=== PATIENT | male | born 1985 | race Caucasian/White ===

== ENCOUNTER 2020-08-30 22:45 | Emergency (ER) | payer SELFPAY ==
[~2020-08-30] VITALS: Ht 175.2 cm; Wt 73.6 kg
[2020-08-30 22:49] VITALS: BP 122/73
[2020-08-30] MEDS ORDERED: ONDANSETRON 4 MG (ZOFRAN) ORAL DISSOLVE TAB PO STA (22:59)
[2020-08-30] MEDS ORDERED: DOXYCYCLINE 100 MG (VIBRAMYCIN) TABLET PO ONE (23:00)
--- NOTE | 2020-08-30 23:01 | ED Integumentary General ---
General Chief Complaint: Skin/Wound Problems Stated Complaint: RASH ON WRISTS,MOUTH Nursing Triage Note: Patient states that he developed a wound on his right index finger. He now has a rash around his mouth. Right index finger has a broken blister like appearance. Patient does state that he began vomiting today. Source: patient Exam Limitations: no limitations History of Present Illness Date Seen by Provider: Aug 30, 2020 Time Seen by Provider: 10:57 Initial Comments presents w sores on his skin present for "days". 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 [place]cently moved to this area from [place] and has not established a PCP yet. Having some nausea without abdominal pain Allergies and Home Medications Allergies Coded Allergies: No Known Drug Allergies (Unverified , 08/30/20) Patient Home Medication List Home Medication List Reviewed: Yes Review of Systems Review of Systems Constitutional: see HPI; No chills, No fever, No weakness Respiratory: No cough, No short of breath Cardiovascular: No chest pain, No edema, No palpitations Gastrointestinal: No abdominal pain, No loss of appetite; nausea; No vomiting Musculoskeletal: No back pain, No joint pain, No muscle pain Skin: see HPI, lesions (all over) Past Hqcjkrh-Zjciic-Zwkdxi Hx Past Med/Social Hx: Reviewed Nursing Past Med/Soc Hx Patient Social History Recent Foreign Travel: No Contact w/Someone Who Travel: No Recent Infectious Disease Expo: No Physical Exam Vital Signs Vital Signs - First Documented 08/30/20 22:49 Temp 36.6 Pulse 107 Resp 18 B/P (MAP) 122/73 (89) Pulse Ox 97 O2 Delivery Room Air Capillary Refill : Less Than 3 Seconds General Appearance: WD/WN, no apparent distress Cardiovascular: regular rate, rhythm, no edema Respiratory: chest non-tender, lungs clear Skin: No ecchymosis, No jaundice, No pallor; rash, other (scattered lesions of trunk and extremities.....crusted lesions (c/w MRSA). No abscess, no drainage. No petechiae) Lymphatic: no adenopathy Progress/Results/Core Measures Results/Orders My Orders Orders - RITU GUERRERO DO Doxycycline Hyclate Tablet (Vibramycin T (08/30/20 23:00) Ondansetron Oral Dissolve Tab (Zofran (08/30/20 22:59) Vital Signs/I&O 08/30/20 22:49 Temp 36.6 Pulse 107 Resp 18 B/P (MAP) 122/73 (89) Pulse Ox 97 O2 Delivery Room Air Blood Pressure Mean: 89 Departure Impression Primary Impression: MRSA (methicillin resistant Staphylococcus aureus) infection Disposition: 01 HOME, SELF-CARE Condition: Stable Departure-Patient Inst. Decision time for Depature: 23:02 Referrals: [facility] NO,LOCAL PHYSICIAN (PCP) Primary Care Physician Patient Instructions: MRSA (DC) Add. Discharge Instructions: Call the [facility] to establish care next week. All discharge instructions reviewed with patient and/or family. Voiced understanding. Scripts Mupirocin Calcium (Mupirocin) 15 Gm Cream..g. 15 GM TP TID, #1 TUBE 2 Refills Prov: RITU GUERRERO DO 08/30/20 Doxycycline Hyclate (Doxycycline Hyclate) 100 Mg Tablet 100 MG PO BID, #20 TAB 0 Refills Prov: RITU GUERRERO DO 08/30/20 RITU GUERRERO DO Aug 30, 2020 23:01
[2020-08-30] MEDS ORDERED: DOXY100T2 PO (23:04)
[2020-08-30] MEDS ORDERED: MUPI15CR11 TP (23:04)
[2020-08-30] MEDS ORDERED: ONDANSETRON 4 MG (ZOFRAN) ORAL DISSOLVE TAB ONE (23:05)
[2020-08-30] MEDS ORDERED: DOXYCYCLINE 100 MG (VIBRAMYCIN) TABLET ONE (23:05)
== END 2020-08-30 23:13 | disposition home or self-care (01) ==
LOC: ER FS 22:47
DX: A49.02 Methicillin resistant Staphylococcus aureus infection, unspecified site (principal)
CPT/HCPCS: 99283

== ENCOUNTER 2020-09-02 14:34 | Emergency (ER) | payer SELFPAY ==
[~2020-09-02] VITALS: Ht 175.3 cm; Wt 76.6 kg
[~2020-09-02 14:34] MED LIST: DOXY100T2 PO; MUPI15CR11 TP
[2020-09-02] MEDS ORDERED: CLINDAMYCIN 600 MG/50 ML IVPB 50 ML IV ONE (15:00)
[2020-09-02] MEDS ORDERED: NS IV 1000 ML 1,000 ML IV SCH (15:00)
--- NOTE | 2020-09-02 15:04 | ED Integumentary General ---
General Chief Complaint: Skin/Wound Problems Stated Complaint: HAS A STAPH INFECTION Nursing Triage Note: Patient reports he was seen in the ED here 3 days ago for a skin infection on his right first finger, face, shoulders bilaterally, and the back of his left leg. He reports he has been taking his doxycycline as prescribed, but was unable to fill the topical ointment prescription d/t cost. He reports that his skin infection is worsening and he now has a stiff neck and some generalized abdominal pain. Source: patient History of Present Illness Date Seen by Provider: Sep 02, 2020 Time Seen by Provider: 14:58 Initial Comments 34-year-old male states he has a history of MRSA skin infections which have been culture proven in the past he started with a scab-like infected-looking area on the dorsal right index finger at the PIP recently was seen here 3 days ago and started on doxycycline which he has been taking he's not gotten the Bactroban ointment says there is been no improvement some spreading of infection he has small areas on his posterior shoulders and upper chest does have a scabbed area on the left lower leg Allergies and Home Medications Allergies Coded Allergies: No Known Drug Allergies (Unverified , 08/30/20) Home Medications Clindamycin HCl 300 Mg Capsule, 300 MG PO QID Prescribed by: JOHN CASTAÑEDA on 09/02/20 1512 Doxycycline Hyclate 100 Mg Tablet, 100 MG PO BID Prescribed by: RITU GUERRERO on 08/30/202303 Mupirocin Calcium 15 Gm Cream..g., 15 GM TP TID Prescribed by: RITU GUERRERO on 08/30/202303 Patient Home Medication List Home Medication List Reviewed: Yes Review of Systems Review of Systems Constitutional: No fever EENTM: no symptoms reported Respiratory: no symptoms reported Cardiovascular: no symptoms reported Gastrointestinal: no symptoms reported; No nausea, No vomiting Genitourinary: no symptoms reported Musculoskeletal: no symptoms reported Past Avyqlmb-Cjtbdl-Fpszws Hx Patient Social History Alcohol Use: Denies Use Recreational Drug Use: No Smoking Status: Current Everyday Smoker Type Used: Cigarettes 2nd Hand Smoke Exposure: No Recent Foreign Travel: No Contact w/Someone Who Travel: No Recent Infectious Disease Expo: No Recent Hopitalizations: No Physical Abuse: No Sexual Abuse: No Mistreated: No Fear: No Seasonal Allergies Seasonal Allergies: No Past Medical History Surgeries: Yes Orthopedic Respiratory: No Cardiac: No Neurological: No Genitourinary: No Gastrointestinal: No Musculoskeletal: No Endocrine: No HEENT: No Cancer: No Psychosocial: No Integumentary: Yes (MRSA) Physical Exam Vital Signs Vital Signs - First Documented 09/02/20 14:45 Temp 36.2 Pulse 103 Resp 18 B/P (MAP) 168/108 (128) Pulse Ox 100 O2 Delivery Room Air Capillary Refill : Less Than 3 Seconds General Appearance: WD/WN (non-toxic appearance afebrile), no apparent distress HEENT: PERRL/EOMI, TMs normal, pharynx normal Neck: supple, other (no evidence of meningeal irritation) Cardiovascular: regular rate, rhythm, no murmur Respiratory: lungs clear Gastrointestinal: normal bowel sounds, non tender, soft Extremities: normal inspection, other (slight swelling present right index finger and no tenosynovitis) Skin: other (as described has scab-like lesions dorsal right index finger PIP near the left side of the mouth posterior lateral left lower leg) Progress/Results/Core Measures Results/Orders Lab Results Laboratory Tests Test 09/02/20 14:55 Range/Units White Blood Count 5.7 4.3-11.0 10^3/uL Red Blood Count 4.88 4.35-5.85 10^6/uL Hemoglobin 14.5 13.3-17.7 G/DL Hematocrit 42 40-54 % Mean Corpuscular Volume 85 80-99 FL Mean Corpuscular Hemoglobin 30 25-34 PG Mean Corpuscular Hemoglobin Concent 35 32-36 G/DL Red Cell Distribution Width 12.8 10.0-14.5 % Platelet Count 208 130-400 10^3/uL Mean Platelet Volume 11.0 H 7.4-10.4 FL Immature Granulocyte % (Auto) 0 % Neutrophils (%) (Auto) 48 42-75 % Lymphocytes (%) (Auto) 44 12-44 % Monocytes (%) (Auto) 7 0-12 % Eosinophils (%) (Auto) 1 0-10 % Basophils (%) (Auto) 1 0-10 % Neutrophils # (Auto) 2.7 1.8-7.8 X 10^3 Lymphocytes # (Auto) 2.5 1.0-4.0 X 10^3 Monocytes # (Auto) 0.4 0.0-1.0 X 10^3 Eosinophils # (Auto) 0.1 0.0-0.3 10^3/uL Basophils # (Auto) 0.0 0.0-0.1 10^3/uL Immature Granulocyte # (Auto) 0.0 0.0-0.1 10^3/uL My Orders Orders - JOHN CASTAÑEDA MD Iv Heplock-Insert (Order) (09/02/20 14:53) Cbc With Automated Diff (09/02/20 14:53) Clindamycin 600 Mg/50 Ml Ivpb (Cleocin P (09/02/20 15:00) Ns Iv 1000 Ml (Sodium Chloride 0.9%) (09/02/20 15:00) Wound Culture (09/02/20 14:53) Hydrocodone/Apap 5/325 Tablet (Lortab 5 (09/02/20 15:15) Medications Given in ED Current Medications Medications Dose Ordered Sig/Angel Route Start Time Stop Time Status Last Admin Dose Admin Acetaminophen/ Hydrocodone Bitart 1 tab ONCE ONCE PO 09/02/20 15:15 09/02/20 15:16 DC 09/02/20 15:20 1 TAB Clindamycin Phosphate/Dextrose 50 ml @ 100 mls/hr ONCE ONCE IV 09/02/20 15:00 09/02/20 15:29 DC 09/02/20 15:13 100 MLS/HR Vital Signs/I&O 09/02/20 14:45 Temp 36.2 Pulse 103 Resp 18 B/P (MAP) 168/108 (128) Pulse Ox 100 O2 Delivery Room Air Blood Pressure Mean: 128 Progress Progress Note : Progress Note Hb 14.5 WBC 5,700 Departure Impression Primary Impression: MRSA (methicillin resistant Staphylococcus aureus) infection Disposition: HOME, SELF-CARE Condition: Stable Departure-Patient Inst. Referrals: NO,LOCAL PHYSICIAN (PCP/Family) Primary Care Physician Patient Instructions: MRSA (DC) Scripts Hydrocodone/Acetaminophen ([place] 10-325 Tablet) 1 Each Tablet 1 TAB PO Q6H PRN for PAIN-MODERATE MDD 5 TABS, #10 TAB Prov: JOHN CASTAÑEDA MD 09/02/20 Clindamycin HCl (Clindamycin HCl) 300 Mg Capsule 300 MG PO QID for 7 Days, #28 CAP Prov: JOHN CASTAÑEDA MD 09/02/20 JOHN CASTAÑEDA MD Sep 02, 2020 15:03
[2020-09-02] MEDS ORDERED: CLIN300C11 PO (15:12)
[2020-09-02] MEDS ORDERED: HYDROcodone/APAP 5 MG/325 MG (LORTAB) TAB PO ONE (15:15)
[2020-09-02 15:28] LABS: HEMATOCRIT 42 % (40-54); HEMOGLOBIN 14.5 G/DL (13.3-17.7); MEAN CORPUSCULAR HEMOGLOBIN 30 PG (25-34); MEAN CORPUSCULAR HGB CONC 35 G/DL (32-36); MEAN CORPUSCULAR VOLUME 85 FL (80-99); WHITE BLOOD COUNT 5.7 10^3/uL (4.3-11.0)
[2020-09-02 15:29] LABS: BASOPHILS % (AUTO) 1 % (0-10); EOSINOPHILS # (AUTO) 0.1 10^3/uL (0.0-0.3); EOSINOPHILS % (AUTO) 1 % (0-10); LYMPHOCYTES # (AUTO) 2.5 X 10^3 (1.0-4.0); LYMPHOCYTES % (AUTO) 44 % (12-44); MONOCYTES # (AUTO) 0.4 X 10^3 (0.0-1.0); MONOCYTES % (AUTO) 7 % (0-12); NEUTROPHILS # (AUTO) 2.7 X 10^3 (1.8-7.8); NEUTROPHILS % (AUTO) 48 % (42-75); PLATELET COUNT 208 10^3/uL (130-400)
[2020-09-02] MEDS ORDERED: HYDR-4196 PO (15:56)
[2020-09-02 16:31] VITALS: BP 138/83
== END 2020-09-02 16:30 | disposition home or self-care (01) ==
LOC: EDUNIT# 14:34 → ER FS 14:35
DX: A49.02 Methicillin resistant Staphylococcus aureus infection, unspecified site (principal); F17.210 Nicotine dependence, cigarettes, uncomplicated
CPT/HCPCS: 36415; 85025; 87070; 87077; 87205

== ENCOUNTER 2020-09-11 22:09 | Emergency (ER) | payer SELFPAY ==
[~2020-09-11] VITALS: Ht 162.6 cm; Wt 74.6 kg
[~2020-09-11 22:09] MED LIST changes: +CLIN300C11 PO; +HYDR-4196 PO
--- NOTE | 2020-09-11 22:35 | ED Integumentary General ---
General Chief Complaint: Skin/Wound Problems Stated Complaint: STAPH INFECTION Nursing Triage Note: pt states he has been seen for skin infection and cultured x 2, pt has been on doxycycline and most recently cleocin which pt states neither has worked. Source: patient Exam Limitations: no limitations History of Present Illness Date Seen by Provider: Sep 11, 2020 Time Seen by Provider: 22:30 Initial Comments Patient presents with evidence of cellulitis complaining that is not improving on the antibiotics he does not like the antibiotics is the given the digestion thinks that his rash is getting worse. The predominant lesions on the dorsum of the right hand and right wrist the left lower lip area he thinks he also has lesions on his genitals. He denies a fever or denies trouble passing his urine has no vomiting no diarrhea Timing/Duration: other ( this has been apparently going on for some period of time) Severity: mild Location: face, hands, genitalia Possible Cause: other (MRSA?) Associated Symptoms: change in skin texture; No fever, No flushing, No hives Allergies and Home Medications Allergies Coded Allergies: No Known Drug Allergies (Unverified , 08/30/20) Home Medications Clindamycin HCl 300 Mg Capsule, 300 MG PO QID Prescribed by: JOHN CASTAÑEDA on 09/02/20 1512 Doxycycline Hyclate 100 Mg Tablet, 100 MG PO BID Prescribed by: RITU GUERRERO on 08/30/20 230 Hydrocodone/Acetaminophen 1 Each Tablet, 1 TAB PO Q6H PRN for PAIN-MODERATE Prescribed by: JOHN CASTAÑEDA on 09/02/20 1556 Mupirocin Calcium 15 Gm Cream..g., 15 GM TP TID Prescribed by: RITU GUERRERO on 08/30/20 230 Patient Home Medication List Home Medication List Reviewed: Yes Review of Systems Review of Systems Constitutional: no symptoms reported; No chills, No diaphoresis, No fever EENTM: mouth pain (painful left lower lip); No no symptoms reported Respiratory: no symptoms reported; No cough Cardiovascular: no symptoms reported; No chest pain, No edema Gastrointestinal: No abdominal pain, No diarrhea; heartburn (related to taking the clindamycin) Musculoskeletal: see HPI Skin: see HPI Psychiatric/Neurological: No Symptoms Reported Past Bskhzbt-Xzghju-Ettsav Hx Patient Social History Alcohol Use: Denies Use Recreational Drug Use: No Smoking Status: Never a Smoker Type Used: Cigarettes 2nd Hand Smoke Exposure: No Recent Foreign Travel: No Contact w/Someone Who Travel: No Recent Infectious Disease Expo: No Recent Hopitalizations: No Physical Abuse: No Sexual Abuse: No Mistreated: No Fear: No Seasonal Allergies Seasonal Allergies: No Past Medical History Surgeries: Yes Orthopedic Respiratory: No Cardiac: No Neurological: No Genitourinary: No Gastrointestinal: No Musculoskeletal: No Endocrine: No HEENT: No Cancer: No Psychosocial: No Integumentary: Yes (MRSA) Blood Disorders: No Physical Exam Vital Signs Vital Signs - First Documented 09/11/20 22:19 Temp 36.6 Pulse 113 Resp 20 B/P (MAP) 146/76 (99) Pulse Ox 9 O2 Delivery Room Air Capillary Refill : Less Than 3 Seconds General Appearance: WD/WN, no apparent distress HEENT: PERRL/EOMI Neck: non-tender, full range of motion, supple Cardiovascular: regular rate, rhythm, no edema Respiratory: chest non-tender, lungs clear, normal breath sounds Gastrointestinal: normal bowel sounds, non tender Extremities: normal inspection, other (there is evidence of dry excoriated linear areas on the dorsum of the right hand and wrist that are scabbed with minimally erythematous margins that appear to be mostly healing granulation tissue. There is no oozing or purulence discharging from the wounds there is no lymphangitis there is no regional adenopathy) Neurologic/Psychiatric: benefits manager II-XII nml as tested, no motor/sensory deficits Skin: other (is also somewhat vesicular patch of lesions the left lower corner of the mouth on the stratified squamous epithelium. It again is dry and nonpurulent without evidence of abscess) Skin Problem Location: face, upper extremities Skin Problem Character: lesion, thickening Lymphatic: no adenopathy Progress/Results/Core Measures Results/Orders Lab Results Laboratory Tests Test 09/11/20 22:30 Range/Units White Blood Count 8.2 4.3-11.0 10^3/uL Red Blood Count 4.89 4.35-5.85 10^6/uL Hemoglobin 14.4 13.3-17.7 G/DL Hematocrit 42 40-54 % Mean Corpuscular Volume 86 80-99 FL Mean Corpuscular Hemoglobin 29 25-34 PG Mean Corpuscular Hemoglobin Concent 34 32-36 G/DL Red Cell Distribution Width 12.8 10.0-14.5 % Platelet Count 210 130-400 10^3/uL Mean Platelet Volume 11.2 H 7.4-10.4 FL Lactic Acid Level 1.16 0.50-2.00 MMOL/L My Orders Orders - JONATHAN HERBERT DO Cbc No Diff (09/11/20 22:28) Lactic Acid Analyzer (09/11/20 22:28) Antacid Suspension (Mylanta Suspension (09/11/20 22:45) Mupirocin Ointment (Bactroban Ointment (09/12/20 09:00) Mupirocin Ointment (Bactroban Ointment (09/11/20 22:45) Medications Given in ED Current Medications Medications Dose Ordered Sig/Angel Route Start Time Stop Time Status Last Admin Dose Admin Al Hydrox/Mg Hydrox/Simethicone 30 ml ONCE ONCE PO 09/11/20 22:45 09/11/20 22:46 DC 09/11/20 22:49 30 ML Vital Signs/I&O 09/11/20 22:19 Temp 36.6 Pulse 113 Resp 20 B/P (MAP) 146/76 (99) Pulse Ox 9 O2 Delivery Room Air Blood Pressure Mean: 99 Progress Progress Note : Progress Note Patient appears to have multiple visits for chronic wounds that are failing to heal promptly apparently history of MRSA skin currently on clindamycin wounds do not appear appeared purulent or infected. Wound on the dorsum of the hand also is quite linear and narrow which doesn't really look to be of infectious but more traumatic at least an initial injury to the skin that may have been secondarily infected and since I'm not seeing the patient before he also complained of lesions on his genitals those appeared to be fairly nonspecific and certainly were not consistent with any typical STD as one was on the full R aspect of the shaft of the penis it was somewhat linear and appeared to be more intertriginous than it did circumscribed lesion. There is one small erythematous spot on the left side of the foreskin but was not vesicular and otherwise is nondescript the plan will be to check inflammatory markers give the patient some antacids for his indigestion from the clindamycin review the record most likely recommend he continue the clindamycin and referred to resources in the candidate to help get his prescriptions filled for Bactroban Departure Impression Primary Impression: Healing wound Disposition: HOME, SELF-CARE Condition: Improved Departure-Patient Inst. Referrals: NO,LOCAL PHYSICIAN (PCP) Primary Care Physician [facility] [place] Patient Instructions: MRSA (DC), Skin Abrasions JONATHAN HERBERT DO Sep 11, 2020 22:35
[2020-09-11 22:41] LABS: HEMOGLOBIN 14.4 G/DL (13.3-17.7); WHITE BLOOD COUNT 8.2 10^3/uL (4.3-11.0)
[2020-09-11 22:42] LABS: MEAN PLATELET VOLUME 11.2 FL (7.4-10.4)
[2020-09-11] MEDS ORDERED: ANTACID SUSP 30 ML UDC (MYLANTA) PO ONE (22:45)
[2020-09-11] MEDS ORDERED: MUPIROCIN 2% OINT 22 GM (BACTROBAN) TUBE ONE (22:45)
[2020-09-11 23:25] VITALS: BP 146/76
[2020-09-12] MEDS ORDERED: MUPIROCIN 2% OINT 22 GM (BACTROBAN) TUBE TOP SCH (09:00)
== END 2020-09-11 23:25 | disposition home or self-care (01) ==
LOC: EDUNIT# 22:09 → ER FS 22:11
DX: L98.9 Disorder of the skin and subcutaneous tissue, unspecified (principal); L53.9 Erythematous condition, unspecified; Z86.14 Personal history of Methicillin resistant Staphylococcus aureus infection; Z79.2 Long term (current) use of antibiotics
CPT/HCPCS: 36415; 83605; 85027